=== PATIENT | female | born 1975 | race Caucasian/White ===

== ENCOUNTER 2016-09-25 09:26 | Day surgery (SDC) | payer BC ==
[~2016-09-25 09:26] MED LIST: PROPOFOL 10 MG/ML EMU IV ONE; PROPOFOL 500 MG/50 ML EMU IV ONE
[2016-09-25] MEDS ORDERED: LIDOCAINE HCL 1% MPF SOL ONE (10:20)
[2016-09-25] MEDS ORDERED: FENTANYL 100MCG/2ML SOL ONE (10:21)
[2016-09-25 11:27] VITALS: O2SAT 100
[2016-09-25 11:41] VITALS: BP 112/73; PULSE 62; RESP 18; TEMP 97.4
== END 2016-09-25 12:05 | disposition home or self-care (01) ==
LOC: SURG 09:26
PROVIDERS: ATTEND Surgery
DX: R10.13 Epigastric pain (principal); R10.11 Right upper quadrant pain; Z86.010 Personal history of colon polyps; D12.5 Benign neoplasm of sigmoid colon
CPT/HCPCS: 43235; 45385; 99001; J2001 ×2; J2704 ×3; J3010 ×2

== ENCOUNTER 2018-07-03 18:26 | Emergency (ER) | payer BC ==
[2018-07-03] MEDS ORDERED: METOCLOPRAMIDE HCL 5 MG/ML 10 MG in SODIUM CHLORIDE 0.9% 50 ML 50 ML IV ONE (18:47)
[2018-07-03] MEDS ORDERED: METOCLOPRAMIDE HYDROCHLORIDE 5 MG/ML SOL ONE (18:51)
[2018-07-03] MEDS ORDERED: SODIUM CHLORIDE 0.9% 1000ML 1,000 ML IV SCH (19:00)
[2018-07-03] MEDS ORDERED: HYDROMORPHONE 1 MG/ML SYRINGE IV PRN (19:05)
[2018-07-03] MEDS ORDERED: HYDROMORPHONE 1 MG/ML SYRINGE ONE ×2 (19:08→20:03)
[2018-07-03] MEDS ORDERED: HYDROMORPHONE 1 MG/ML SYRINGE IV ONE (19:10)
[2018-07-03] MEDS ORDERED: SODIUM CHLORIDE 0.9% FLUSH 10 ML SOL IV PRN (19:19)
[2018-07-03] MEDS ORDERED: METOCLOPRAMIDE HYDROCHLORIDE 5 MG/ML SOL IV ONE (19:24)
[2018-07-03 19:41] VITALS: TEMP 97.9
[2018-07-03 20:45] VITALS: BP 127/62; PULSE 76; RESP 18; O2SAT 97
== END 2018-07-03 20:40 | disposition home or self-care (01) ==
LOC: ED 18:26
DX: G43.119 Migraine with aura, intractable, without status migrainosus (principal)
CPT/HCPCS: 70450; 96365; 96374; 96375; 99283; 99285; J2765; J1170